=== PATIENT | female | born 1935 | race Caucasian/White ===

== ENCOUNTER 2019-06-09 14:17 | Emergency (ER) | payer OTHER, MEDICARE ==
[~2019-06-09] VITALS: Ht 167.6 cm; Wt 83.9 kg
--- NOTE | 2019-06-09 14:50 | NUR ---
PATIENT TO ER #[id number]
[2019-06-09 14:51] VITALS: BP_SYST 162
[2019-06-09] MEDS ORDERED: AMLO2.5T50 PO (14:51)
[2019-06-09] MEDS ORDERED: TELM40TA2 PO (14:51)
[2019-06-09] MEDS ORDERED: LATA7.5D EACH EYE (14:51)
[2019-06-09] MEDS ORDERED: DORZ10DR20 EACH EYE (14:51)
--- NOTE | 2019-06-09 15:00 | NUR ---
Patient arrived via POV, AAOx4, and ambulatory with cane. Patient c/c of right lower extremity pain, patient states she has not had a fall. Patient states the only time she remembers the pain onset would be when she was having a BM approximately 1 month ago. Patient states she has followed up multiple times with urgent care with testing completed. Patient states they saw tendonitis. Patient states she was encouraged to follow up to rule out DVT. Patient has no bruising or discoloration to affected legs. Mild edema to bilateral ankles. Will continue to follow up and monitor.
--- NOTE | 2019-06-09 15:03 | NUR ---
ER at bedside examining patient.
[2019-06-09 16:40] VITALS: BP_SYST 144
--- NOTE | 2019-06-09 16:40 | NUR ---
Patient given written and verbal discharge instructions and verbalizes understanding. ER MD discussed with patient the results and treatment provided. Patient in stable condition. ID arm band removed. Rx not given. Patient educated on pain management and to follow up with PMD. Pain Scale 3/10, legs. Opportunity for questions provided and answered. Medication side effect fact sheet provided. Called for patient a disk for imaging.
== END 2019-06-09 16:40 | disposition home or self-care (01) ==
LOC: SED 14:17
DX: M79.661 Pain in right lower leg (principal); Z79.899 Other long term (current) drug therapy
CPT/HCPCS: 93971; 99284